=== PATIENT | female | born 1965 | race Caucasian/White ===

== ENCOUNTER → 2016-12-28 | Outpatient (CLI) | payer OTHER ==
[~2016-12-28] MED LIST: ACYC-114 PO; CEFD300C37 PO; LEVO500T33 PO; LISI2.5T PO; LOVA10TA PO; MYCO360T PO; OMEP40CA6 PO; ONDA8TAB16 SL; OXYC5TAB3 PO; POLY17PO5 PO; PRED5TAB PO; SULF1TAB24 PO; TACR1CAP4 PO; WARF5TAB PO; WARF5TAB7 PO-COUM; WARF7.5T PO
== END | disposition home or self-care (01) ==
LOC: CFH 08:59
PROVIDERS: ATTEND Nurse Practitioner
DX: I12.0 Hypertensive chronic kidney disease with stage 5 chronic kidney disease or end stage renal disease (principal); N18.6 End stage renal disease; N25.81 Secondary hyperparathyroidism of renal origin; E55.9 Vitamin D deficiency, unspecified; D68.61 Antiphospholipid syndrome; M32.10 Systemic lupus erythematosus, organ or system involvement unspecified; Z94.0 Kidney transplant status; Z90.49 Acquired absence of other specified parts of digestive tract; Z94.7 Corneal transplant status; Z79.01 Long term (current) use of anticoagulants
CPT/HCPCS: 76700

== ENCOUNTER 2017-01-23 09:41 | Emergency (ER) | payer OTHER ==
[~2017-01-23] VITALS: Ht 167.6 cm; Wt 67.8 kg
[~2017-01-23 09:41] MED LIST changes: -LEVO500T33 PO; +LEVO500T47 PO
[2017-01-23 10:49] LABS: HEMATOCRIT 37.9 % (34.6-47.8); HEMOGLOBIN 12.5 g/dL (11.7-16.4); WHITE BLOOD COUNT 4.7 x10^3/uL (3.4-10)
[2017-01-23 11:00] LABS: BLOOD UREA NITROGEN 38 mg/dL (7-18)
[2017-01-23] MEDS ORDERED: HYDROmorphone 1 MG/ML, 1ML ONE (12:17)
[2017-01-23] MEDS ORDERED: HYDROmorphone 1 MG/ML, 1ML IM ONE (12:30)
[2017-01-23 14:40] VITALS: BP 113/73
== END 2017-01-23 14:46 | disposition home or self-care (01) ==
LOC: ED 12:23
DX: M25.562 Pain in left knee (principal); I10 Essential (primary) hypertension
CPT/HCPCS: 29505; 36415; 73564; 73721; 80048; 82040; 85025; 96372; 99285; J1170

== ENCOUNTER → 2017-03-26 | Outpatient (CLI) | payer OTHER | END | disposition home or self-care (01) | LOC: CFH 10:21 | PROVIDERS: ATTEND Internal Medicine Cardiovascular Disease | DX: I08.3 Combined rheumatic disorders of mitral, aortic and tricuspid valves (principal); I10 Essential (primary) hypertension; E78.5 Hyperlipidemia, unspecified; Z87.891 Personal history of nicotine dependence | CPT/HCPCS: 93306 ==

== ENCOUNTER → 2018-02-13 | Outpatient (CLI) | payer OTHER ==
[~2018-02-13] MED LIST changes: +WARF-36 PO-COUM; -WARF5TAB7 PO-COUM
== END | disposition home or self-care (01) ==
LOC: CFH 13:21
PROVIDERS: ATTEND Pain Medicine Interventional Pain Medicine
DX: M48.02 Spinal stenosis, cervical region (principal); M25.78 Osteophyte, vertebrae; M47.812 Spondylosis without myelopathy or radiculopathy, cervical region; Z86.718 Personal history of other venous thrombosis and embolism; Z87.891 Personal history of nicotine dependence
CPT/HCPCS: 72141

== ENCOUNTER 2019-03-24 08:41 | Outpatient (CLI) | payer OTHER ==
[~2019-03-24 08:41] MED LIST changes: +BUTA1CAP PO; +CARV3.122 PO; +CEFT1PIG IV; +CEPH-376 PO; +CYCL-259 PO; +GABA300C10 PO; +LISI-167 PO; +LOVA20TA2 PO; +ONDA4TAB7 PO; +TIZA4CAP PO; +VANC125C3 PO; +WARF7.5T46 PO; +magnesium PO; +vitamin d
== END 2019-03-24 23:59 | disposition home or self-care (01) ==
LOC: CFH 08:41
PROVIDERS: ATTEND Internal Medicine Cardiovascular Disease
DX: I08.3 Combined rheumatic disorders of mitral, aortic and tricuspid valves (principal); I10 Essential (primary) hypertension
CPT/HCPCS: 93306

== ENCOUNTER 2019-04-14 08:34 | Outpatient (CLI) | payer OTHER ==
[~2019-04-14 08:34] MED LIST changes: +CEPH-368 PO; +OMEP40CA42 PO; -OMEP40CA6 PO; +OXYC10TA47 PO
== END 2019-04-14 23:59 | disposition home or self-care (01) ==
LOC: CVU 08:34 → RAD 23:59
PROVIDERS: ATTEND Internal Medicine Cardiovascular Disease
DX: I08.8 Other rheumatic multiple valve diseases (principal); I65.23 Occlusion and stenosis of bilateral carotid arteries; I70.0 Atherosclerosis of aorta; R06.02 Shortness of breath
CPT/HCPCS: 71250; 74176; 93308; 93321; 93325; 93880; 94010; 94726; 94729

== ENCOUNTER 2019-10-22 12:50 | Outpatient (CLI) | payer OTHER, MEDICARE ==
[~2019-10-22 12:50] MED LIST changes: -TACR1CAP4 PO; +TACR1CAP5 PO
== END 2019-10-22 23:59 | disposition home or self-care (01) ==
LOC: CVU 12:50
PROVIDERS: ATTEND Internal Medicine Cardiovascular Disease
DX: I08.8 Other rheumatic multiple valve diseases (principal); I10 Essential (primary) hypertension; A41.52 Sepsis due to Pseudomonas; E78.5 Hyperlipidemia, unspecified
CPT/HCPCS: 93306; 93356

== ENCOUNTER → 2020-03-07 | Outpatient (CLI) | payer OTHER, MEDICARE ==
[~2020-03-07] MED LIST changes: -WARF5TAB PO; +WARF5TAB2 PO
== END | disposition home or self-care (01) ==
LOC: CVU 12:34
PROVIDERS: ATTEND Registered Nurse
DX: I11.9 Hypertensive heart disease without heart failure (principal); I08.3 Combined rheumatic disorders of mitral, aortic and tricuspid valves
CPT/HCPCS: 93306

== ENCOUNTER → 2020-08-29 | Outpatient (CLI) | payer BC, MEDICARE ==
[~2020-08-29] MED LIST changes: -CYCL-259 PO; +CYCL10TA2 PO; -OXYC5TAB3 PO; +OXYC5TAB98 PO
== END | disposition home or self-care (01) ==
LOC: CVU 12:27
PROVIDERS: ATTEND Internal Medicine Cardiovascular Disease
DX: I08.0 Rheumatic disorders of both mitral and aortic valves (principal); I10 Essential (primary) hypertension; E78.5 Hyperlipidemia, unspecified
CPT/HCPCS: 93306; 93356

== ENCOUNTER 2021-02-04 15:19 | Emergency (ER) | payer BC, MEDICARE ==
[~2021-02-04] VITALS: Ht 170.2 cm; Wt 72.7 kg
[~2021-02-04 15:19] MED LIST changes: -ACYC-114 PO; +ACYC-40 PO; +ALPR1TAB2 PO; -LISI2.5T PO; +LISI2.5T12 PO; -OMEP40CA42 PO; +OMEP40CA8 PO; +SULF-23 PO; -SULF1TAB24 PO
[2021-02-04 15:27] VITALS: BP 137/98
== END 2021-02-04 16:25 | disposition home or self-care (01) ==
LOC: ED 15:59
DX: R07.81 Pleurodynia (principal); R19.7 Diarrhea, unspecified; Z20.822 Contact with and (suspected) exposure to COVID-19
CPT/HCPCS: 99283; U0003; U0005